=== PATIENT | male | born 1970 | race Caucasian/White ===

== ENCOUNTER 2022-04-17 19:00 | Emergency (ER) | payer BC ==
[2022-04-17] MEDS ORDERED: Lidocaine 1% 5 ML VIAL INJECT ONE (19:17)
[2022-04-17] MEDS ORDERED: Lidocaine 1% 5 ML VIAL ONE (19:17)
== END 2022-04-17 19:59 | disposition home or self-care (01) ==
LOC: KA.ED 19:00
DX: S61.412A Laceration without foreign body of left hand, initial encounter (principal); Z88.1 Allergy status to other antibiotic agents; W26.0XXA Contact with knife, initial encounter
CPT/HCPCS: 12002; 99282